=== PATIENT | female | born 1960 | race Caucasian/White ===

== ENCOUNTER 2017-01-26 15:46 | Emergency (ER) | payer BC ==
[~2017-01-26] VITALS: Ht 167.6 cm; Wt 57.6 kg
[2017-01-26] MEDS ORDERED: IV NORMAL SALINE 1000ML BAG 1,000 ML IV SCH (16:10)
--- NOTE | 2017-01-26 16:15 | PHYS DOC ---
Past Medical History Past Medical History: Depression, Kidney Stone, Other Additional Past Medical Histor: HYPERLIPIDEMIA Past Surgical History: Hysterectomy Alcohol Use: None Drug Use: None Adult General Chief Complaint Chief Complaint: ABDOMINAL PAIN HPI HPI 56-year-old female with a prior history of kidney stones now presents the emergency department complaining of right lower quadrant pain for several days. Patient states she has abdominal pain which is worse with movement. She does have nausea but no vomiting. Denies diarrhea. No black or bloody stool. No fevers chills sweats or shaking chills. Patient has never had an appendectomy nor has she had her gallbladder removed. She reports that her urinary habits have been normal without frequency urgency or dysuria. She states this is completely different than when she's had kidney stones. Review of Systems Review of Systems Constitutional: Denies fever or chills [] Eyes: Denies change in visual acuity, redness, or eye pain [] HENT: Denies nasal congestion or sore throat [] Respiratory: Denies cough or shortness of breath [] Cardiovascular: No additional information not addressed in HPI [] GI: As above. Denies vomiting, bloody stools or diarrhea [] : Denies dysuria or hematuria [] Musculoskeletal: Denies back pain or joint pain [] Integument: Denies rash or skin lesions [] Neurologic: Denies headache, focal weakness or sensory changes [] Endocrine: Denies polyuria or polydipsia [] Current Medications Current Medications Current Medications Medications (Trade) Dose Ordered Sig/Penelope Start Time Stop Time Status Last Admin Dose Admin Hydromorphone HCl (Dilaudid) 0.5 mg 1X ONCE 01/26/17 16:30 01/26/17 16:31 DC 01/26/17 16:38 0.5 MG Info (Do NOT chart on this entry -- for MONITORING) 1 each PRN DAILY PRN 01/26/17 16:45 01/28/17 16:44 Iohexol (Omnipaque 300 Mg/ml) 75 ml 1X ONCE 01/26/17 16:45 01/26/17 16:46 DC 01/26/17 17:11 75 ML Ketorolac Tromethamine (Toradol) 15 mg 1X ONCE 01/26/17 16:30 01/26/17 16:31 DC 01/26/17 16:39 15 MG Ondansetron HCl (Zofran) 4 mg 1X ONCE 01/26/17 16:30 01/26/17 16:31 DC 01/26/17 16:38 4 MG Sodium Chloride 1,000 ml @ 999 mls/hr Q1H1M 01/26/17 16:10 01/26/17 17:10 DC 01/26/17 16:22 999 MLS/HR Allergies Allergies Allergies Coded Allergies Type Severity Reaction Last Updated Verified sulfamethoxazole Allergy Severe TONGUE SWELLING 01/26/17 Yes trimethoprim Allergy Severe TONGUE SWELLING 01/26/17 Yes metronidazole Allergy Unknown RASH 01/26/17 Yes Penicillins Adverse Reaction Unknown YEAST INFECTION 01/26/17 Yes Physical Exam Physical Exam Constitutional: Well developed, well nourished, no acute distress, non-toxic appearance. [] HENT: Normocephalic, atraumatic, bilateral external ears normal, oropharynx moist, no oral exudates, nose normal. [] Eyes: PERRLA, EOMI, conjunctiva normal, no discharge. [] Neck: Normal range of motion, no tenderness, supple, no stridor. [] Cardiovascular:Heart rate regular rhythm, no murmur [] Lungs & Thorax: Bilateral breath sounds clear to auscultation [] Abdomen: Bowel sounds normal, soft, mild right lower quadrant tenderness without guarding or rebound normal bowel sounds no megaly, no masses, no pulsatile masses. [] Skin: Warm, dry, no erythema, no rash. [] Back: No tenderness, no CVA tenderness. [] Extremities: No tenderness, no cyanosis, no clubbing, ROM intact, no edema. [] Neurologic: Alert and oriented X 3, normal motor function, normal sensory function, no focal deficits noted. [] Psychologic: Affect normal, judgement normal, mood normal. [] Current Patient Data Vital Signs Vital Signs Date Time Temp Pulse Resp B/P (MAP) Pulse Ox O2 Delivery O2 Flow Rate FiO2 01/26/17 19:12 58 16 116/64 (81) 97 Room Air 01/26/17 15:55 97.6 97.6 Lab Values Laboratory Tests Test 01/26/17 16:05 White Blood Count 7.5 x10^3/uL (4.0-11.0) Red Blood Count 4.79 x10^6/uL (3.50-5.40) Hemoglobin 14.9 g/dL (12.0-15.5) Hematocrit 43.6 % (36.0-47.0) Mean Corpuscular Volume 91 fL (79-100) Mean Corpuscular Hemoglobin 31 pg (25-35) Mean Corpuscular Hemoglobin Concent 34 g/dL (31-37) Red Cell Distribution Width 13.6 % (11.5-14.5) Platelet Count 320 x10^3/uL (140-400) Neutrophils (%) (Auto) 54 % (31-73) Lymphocytes (%) (Auto) 37 % (24-48) Monocytes (%) (Auto) 8 % (0-9) Eosinophils (%) (Auto) 1 % (0-3) Basophils (%) (Auto) 1 % (0-3) Neutrophils # (Auto) 4.0 x10^3uL (1.8-7.7) Lymphocytes # (Auto) 2.7 x10^3/uL (1.0-4.8) Monocytes # (Auto) 0.6 x10^3/uL (0.0-1.1) Eosinophils # (Auto) 0.1 x10^3/uL (0.0-0.7) Basophils # (Auto) 0.1 x10^3/uL (0.0-0.2) Urine Collection Type Unknown Urine Color Yellow Urine Clarity Clear Urine pH 6.0 Urine Specific [place] 1.010 Urine Protein Negative mg/dL (NEG-TRACE) Urine Glucose (UA) Negative mg/dL (NEG) Urine Ketones (Stick) Trace mg/dL (NEG) Urine Blood Negative (NEG) Urine Nitrite Negative (NEG) Urine Bilirubin Negative (NEG) Urine Urobilinogen Dipstick 0.2 mg/dL (0.2 mg/dL) Urine Leukocyte Esterase Trace (NEG) Urine RBC Occ /HPF (0-2) Urine WBC Occ /HPF (0-4) Urine Squamous Epithelial Cells Few /LPF Urine Transitional Epithelial Cells Few /LPF Urine Bacteria 0 /HPF (0-FEW) Sodium Level 135 mmol/L (136-145) L Potassium Level 3.7 mmol/L (3.5-5.1) Chloride Level 97 mmol/L (98-107) L Carbon Dioxide Level 29 mmol/L (21-32) Anion Gap 9 (6-14) Blood Urea Nitrogen 11 mg/dL (7-20) Creatinine 1.0 mg/dL (0.6-1.0) Estimated GFR (Cockcroft-Gault) 57.6 BUN/Creatinine Ratio 11 (6-20) Glucose Level 86 mg/dL (70-99) Calcium Level 9.5 mg/dL (8.5-10.1) Total Bilirubin 0.5 mg/dL (0.2-1.0) Aspartate Amino Transferase (AST) 30 U/L (15-37) Alanine Aminotransferase (ALT) 42 U/L (14-59) Alkaline Phosphatase 73 U/L (46-116) Total Protein 7.6 g/dL (6.4-8.2) Albumin 4.3 g/dL (3.4-5.0) Albumin/Globulin Ratio 1.3 (1.0-1.7) Lipase 521 U/L (73-393) H Laboratory Tests 01/26/17 16:05 Laboratory Tests 01/26/17 16:05 EKG EKG [] Radiology/Procedures Radiology/Procedures [] Course & Med Decision Making Course & Med Decision Making Patient with several day history of abdominal pain worse right lower quadrant. She is tender in that distribution. No CVA tenderness. No fevers. Patient is hemodynamically stable and well-appearing. Full workup pending including labs and CT. Pertinent Labs and Imaging studies reviewed. (See chart for details) Labs with lipase of 521 and otherwise unremarkable. Patient has no epigastric or upper abdominal tenderness and is only tender in her right lower quadrant. This tenderness is mild without guarding or rebound. Patient has had it intermittently without significant change in pattern for 5 days. Fevers chills sweats or shaking chills. She is well-appearing. CT shows incidental finding of diverticulosis without diverticulitis as well as atherosclerosis of the aorta. Patient will be given copy of CAT scan to follow up with her doctor to discuss these incidental findings in for further workup and treatment as needed. Patient will be given Zofran as well as Levsin for use as needed and follow-up with her doctor in the morning. She and her agree with outpatient follow -up and strict return precautions given [] Dragon Disclaimer Dragon Disclaimer This electronic medical record was generated, in whole or in part, using a voice recognition dictation system. Departure Departure Impression: Primary Impression: Abdominal pain Additional Impressions: Elevated lipase Atherosclerosis of abdominal aorta Diverticulosis Disposition: 01 HOME, SELF-CARE Condition: IMPROVED Patient Instructions: Abdominal Pain (Nonspecific) Additional Instructions: It is not clear what has caused your five-day history of abdominal pain. The CAT scan shows a normal appendix with no inflammatory changes in that region as well. All the laboratory findings pertaining to your abdomen were unremarkable except your lipase was elevated at 521. This is laboratory result that pertains to her pancreas however you have no tenderness in the distribution of her pancreas and the CT showed no abnormality pertaining to this. As discussed, you have an incidental finding of diverticulosis which is a benign condition but it is one is important to be aware that you have as an episode of diverticulitis is always possible for someone with this condition. Take Zofran under your tongue every 4 hours as needed for nausea and vomiting and use Levsin as needed for crampy abdominal pain. Follow-up with your doctor in the morning and return immediately for new severe worsening symptoms Scripts Ondansetron (ZOFRAN ODT) 4 Mg Tab.rapdis 1 TAB SL Q4HRS Y for VOMITING, #15 TAB Prov: ISAAC BOYD MD 01/26/17 Hyoscyamine Sulfate (LEVSIN-SL) 0.125 Mg Tab.subl 0.125 MG SL TID Y for crampy abdominal pain, #15 TAB Prov: ISAAC BOYD MD 01/26/17 Problem Qualifiers ISAAC BOYD MD Jan 26, 2017 16:15
[2017-01-26 16:19] LABS: BASO # 0.1 x10^3/uL (0.0-0.2); BASO % 1 % (0-3); BILIRUBIN,URINE NEGATIVE (NEG); EOS % 1 % (0-3); GLUCOSE,URINE NEGATIVE (NEG); HEMATOCRIT 43.6 % (36.0-47.0); HEMOGLOBIN 14.9 g/dL (12.0-15.5); LYMPH # 2.7 x10^3/uL (1.0-4.8); LYMPH % 37 % (24-48); MEAN CORPUSCULAR HEMOGLOBIN 31 pg (25-35); MEAN CORPUSCULAR HGB CONC 34 g/dL (31-37); MEAN CORPUSCULAR VOLUME 91 fL (79-100); MONO % 8 % (0-9); NEUT % 54 % (31-73); NITRITE,URINE NEGATIVE (NEG); PLATELET COUNT 320 x10^3/uL (140-400); PROTEIN,URINE NEGATIVE (NEG-TRACE); RED BLOOD COUNT 4.79 x10^6/uL (3.50-5.40); RED CELL DISTRIBUTION WIDTH 13.6 % (11.5-14.5); UROBILINOGEN,URINE 0.2 mg/dL (0.2 mg/dL); WHITE BLOOD COUNT 7.5 x10^3/uL (4.0-11.0)
[2017-01-26 16:30] LABS: BACTERIA,URINE 0 /HPF (0-FEW); RBC,URINE OCC /HPF (0-2); SQUAMOUS EPITHELIAL CELL,UR FEW /LPF; WBC,URINE OCC /HPF (0-4)
[2017-01-26] MEDS ORDERED: HYDROmorphone 2 MG/ML VIAL IV ONE (16:30)
[2017-01-26] MEDS ORDERED: ONDANSETRON PF 4 MG/2 ML VIAL. IV ONE (16:30)
[2017-01-26] MEDS ORDERED: KETOROLAC 15 MG/ML VIAL. IV ONE (16:30)
[2017-01-26 16:43] LABS: CALCIUM 9.5 mg/dL (8.5-10.1); GFR 57.6; POTASSIUM 3.7 mmol/L (3.5-5.1)
[2017-01-26] MEDS ORDERED: CONTRAST GIVEN MC PRN (16:45)
[2017-01-26] MEDS ORDERED: IOHEXOL 300 MG/ML 75 ML VIAL IV ONE (16:45)
[2017-01-26 16:57] LABS: ALBUMIN 4.3 g/dL (3.4-5.0); ALBUMIN/GLOBULIN RATIO 1.3 (1.0-1.7); TOTAL BILIRUBIN 0.5 mg/dL (0.2-1.0); TOTAL PROTEIN 7.6 g/dL (6.4-8.2)
--- NOTE | 2017-01-26 17:42 | RAD ---
CT scan of the abdomen and pelvis with contrast 01/26/2017 CLINICAL HISTORY: Right lower quadrant abdominal pain for 2 to 3 days. TECHNIQUE: After the intravenous administration of 75 cc of Omnipaque 300, contiguous, 5 mm axial sections were obtained through the abdomen and pelvis. One or more of the following individualized dose reduction techniques were utilized for this study: 1. Automated exposure control. 2. Adjustment of the mA and/or kV according to patient size. 3. Use of iterative reconstruction technique. FINDINGS: Images through the lung bases demonstrate minimal dependent subsegmental atelectasis bilaterally. The liver, spleen, pancreas, adrenal glands and kidneys are within normal limits. Moderate atherosclerotic plaque formation is seen involving the abdominal aorta. The abdominal aorta tapers normally. The gallbladder is well-distended. No free fluid or free air is seen within the abdomen. There is no evidence of bowel obstruction. The appendix is well-visualized and is within normal limits. Images through the pelvis demonstrate the urinary bladder distended with urine. Calcifications are seen within the pelvis consistent with phleboliths. No adnexal mass is seen. No free fluid is noted. Scattered diverticula are seen involving the sigmoid colon. No inflammatory changes are seen in the adjacent fat. Degenerative changes are seen involving the lower thoracic and throughout the lumbar spine and both hips. IMPRESSION: No acute abnormality is seen. Electronically signed by: Zachary Mcnulty MD (01/26/2017 5:39 PM) [facility]
[2017-01-26] MEDS ORDERED: HYOS0.1265 SL (20:26)
[2017-01-26] MEDS ORDERED: ONDA4TAB10 SL (20:26)
[2017-01-26 20:42] VITALS: BP 112/54
== END 2017-01-26 21:01 | disposition home or self-care (01) ==
LOC: ER 15:46
DX: K57.90 Diverticulosis of intestine, part unspecified, without perforation or abscess without bleeding (principal); R74.8 Abnormal levels of other serum enzymes; I70.0 Atherosclerosis of aorta; F32.9 Major depressive disorder, single episode, unspecified; E78.5 Hyperlipidemia, unspecified; Z87.442 Personal history of urinary calculi; Z88.0 Allergy status to penicillin; Z90.710 Acquired absence of both cervix and uterus; Z88.2 Allergy status to sulfonamides; Z88.1 Allergy status to other antibiotic agents
CPT/HCPCS: 36415; 74177; 80053; 81001; 83690; 85025; 96361; 96374; 96375; 99285; J1170; J1885; J2405; J7030; Q9967